=== PATIENT | female | born 1980 | race Caucasian/White ===

== ENCOUNTER 2023-09-12 03:08 | Emergency (ER) | payer OTHER | END 2023-09-12 04:30 | disposition home or self-care (01) | LOC: MADERS 03:08 | DX: L02.91 Cutaneous abscess, unspecified (principal); F17.210 Nicotine dependence, cigarettes, uncomplicated | CPT/HCPCS: 99282 ==

== ENCOUNTER 2023-09-27 21:20 | Emergency (ER) | payer OTHER ==
[2023-09-27] MEDS ORDERED: Orphenadrine Citrate 60 MG/2 ML VIAL ONE (22:40)
[2023-09-27] MEDS ORDERED: Acetaminophen 500 MG TAB ONE (22:40)
[2023-09-27] MEDS ORDERED: Lidocaine 4% Patch ONE (22:41)
[2023-09-27] MEDS ORDERED: Ketorolac Tromethamine 30 MG (1 mL) VIAL ONE (22:41)
== END 2023-09-27 23:14 | disposition home or self-care (01) ==
LOC: MADERS 21:20
DX: S40.212A Abrasion of left shoulder, initial encounter (principal); F17.210 Nicotine dependence, cigarettes, uncomplicated; W23.1XXA Caught, crushed, jammed, or pinched between stationary objects, initial encounter
CPT/HCPCS: 96372; J1885; J2360

== ENCOUNTER 2024-03-28 11:28 | Emergency (ER) | payer OTHER ==
[2024-03-28] MEDS ORDERED: Bacitracin 1 PK ONE ×2 (11:56→12:38)
[2024-03-28] MEDS ORDERED: Ibuprofen 600 MG TAB ONE (11:56)
[2024-03-28] MEDS ORDERED: Lidocaine 1% w/Epinephrine 1:100K 20 ML VIAL ONE (11:57)
[2024-03-28] MEDS ORDERED: Boostrix 0.5 ML (Tdap) VIAL (>/=7 yrs of age) ONE ×2 (13:16→13:26)
[2024-03-28] MEDS ORDERED: Topiramate 25 MG TAB PO SCH (13:45)
== END 2024-03-28 13:48 | disposition home or self-care (01) ==
LOC: MADERS 11:28
DX: S81.812A Laceration without foreign body, left lower leg, initial encounter (principal); G40.909 Epilepsy, unspecified, not intractable, without status epilepticus; F17.210 Nicotine dependence, cigarettes, uncomplicated; W29.3XXA Contact with powered garden and outdoor hand tools and machinery, initial encounter
CPT/HCPCS: 12034; 90471; 90715

== ENCOUNTER 2024-04-03 02:09 | Emergency (ER) | payer OTHER, SELFPAY ==
[2024-04-03] MEDS ORDERED: Doxycycline 100 MG CAP ONE (02:56)
== END 2024-04-03 03:32 | disposition home or self-care (01) ==
LOC: MADERS 02:09
DX: S81.811D Laceration without foreign body, right lower leg, subsequent encounter (principal); F17.210 Nicotine dependence, cigarettes, uncomplicated; W29.3XXD Contact with powered garden and outdoor hand tools and machinery, subsequent encounter
CPT/HCPCS: 99283

== ENCOUNTER 2024-04-06 12:50 | Emergency (ER) | payer SELFPAY | END 2024-04-06 14:00 | disposition home or self-care (01) | LOC: MADERS 12:50 | DX: S81.812D Laceration without foreign body, left lower leg, subsequent encounter (principal); L03.116 Cellulitis of left lower limb; F17.210 Nicotine dependence, cigarettes, uncomplicated; W26.9XXD Contact with unspecified sharp object(s), subsequent encounter ==